=== PATIENT | female | born 1995 | race Caucasian/White ===

== ENCOUNTER 2017-08-18 20:24 | Emergency (ER) | payer SELFPAY ==
[2017-08-18 20:38] VITALS: BP 152/87
[2017-08-18] MEDS ORDERED: Fluconazole 150 MG (NF) 150 MG TAB PO ONE (21:53)
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
[2017-08-18] MEDS ORDERED: Fluconazole 100 MG TAB* TAB PO ONE (22:09)
== END 2017-08-18 22:30 | disposition home or self-care (01) ==
LOC: UCEAST 20:24
DX: Z11.3 Encounter for screening for infections with a predominantly sexual mode of transmission (principal); Z91.410 Personal history of adult physical and sexual abuse; Z11.4 Encounter for screening for human immunodeficiency virus [HIV]
CPT/HCPCS: 36415; 86592; 86703; 86706; 86803; 87340; 87480; 87491; 87510; 87591; 87661; 99202; A9270-GY; G0463

== ENCOUNTER 2017-09-09 14:04 | Emergency (ER) | payer SELFPAY ==
[2017-09-09 14:53] VITALS: BP 124/80
--- NOTE | 2017-09-09 15:01 | UC ---
Skin Complaint HPI - HPI Summary HPI Summary: 21 y/o female present to the urgent care c/o Left big toe infected for the past 2 weeks. She has soaked in hot water and some pus comes out and it gets better for a while. Now is mildly swollen. she also has circular rash in the ventral side of her left forearm for the past month that sometimes itches. Pt states pain is ,mild 2/10 at touch. Pt is UTD w/ all vaccines for her age. Pt denies fever, SOB, chest pain abdominal pain, N/V/D. - History of Current Complaint Chief Complaint: UCLowerExtremity Time Seen by Provider: 09/09/17 14:54 Stated Complaint: SKIN ISSUE ON ARM SWOLLEN TOE Hx Obtained From: Patient Hx Last Menstrual Period: 2 months ago ?: No Onset/Duration: Gradual Onset, Lasting Weeks - 2 weeks, Still Present, Worse Since - 2 days Skin Exposure Onset/Duration: Weeks Ago - 2 weeks Timing: Constant Onset Severity: Mild Current Severity: Moderate Pain Intensity: 1 Pain Scale Used: 0-10 Numeric Location: Foot (Right) - big toe w/ ingrown toenail Character: Swelling, Redness, Painful Aggravating Factor(s): Touch Alleviating Factor(s): Heat, Other - soaking foot on hot water Associated Signs & Symptoms: Positive: Drainage - yellowish, Tenderness. Negative: Fever, Chills - Allergy/Home Medications Allergies/Adverse Reactions: Allergies Allergy/AdvReac Type Severity Reaction Status Date / Time No Known Allergies Allergy Verified 09/09/17 14:55 Review of Systems Constitutional: Negative Skin: Rash - LF forearm w/ a circular rash for the past month taht itches a lot , Other - RT big toe w/ ingrown toenail ENT: Negative Respiratory: Negative Cardiovascular: Negative Gastrointestinal: Negative Genitourinary: Negative Motor: Negative Neurovascular: Negative Musculoskeletal: Negative Neurological: Negative Psychological: Negative Is Patient Immunocompromised?: No All Other Systems Reviewed And Are Negative: Yes PMH/Surg Hx/FS Hx/Imm Hx Previously Healthy: Yes Respiratory History: Asthma - Surgical History Surgical History: Yes Surgery Procedure, Year, and Place: Tonsils - Family History Known Family History: Positive: None - Pt denies FMHX - Social History Occupation: Student Lives: With Family Alcohol Use: None Substance Use Type: None Smoking Status (MU): Former Smoker Physical Exam Triage Information Reviewed: Yes Vital Signs: Initial Vital Signs Temp 97.7 F 09/09/17 14:46 Pulse 85 09/09/17 14:46 Resp 16 09/09/17 14:46 BP 124/80 09/09/17 14:46 Pulse Ox 98 09/09/17 14:46 - Additional Comments Vital Signs Reviewed: Yes General: well developed, well nourished female sitting in the examining table w/ o any apparent distress Eye Exam: Normal Eyes: Positive: Conjunctiva Clear - PERRLA, EOMI, fundi grossly normal ENT: Positive: Normal ENT inspection, Hearing grossly normal, Pharynx normal, TMs normal Neck: Positive: Supple, Nontender, No Lymphadenopathy Respiratory: Positive: Chest non-tender, Lungs clear, Normal breath sounds, No respiratory distress Cardiovascular: Positive: RRR, No Murmur, Pulses Normal, Brisk Capillary Refill Abdomen Description: Positive: Nontender, No Organomegaly, Soft. Negative: CVA Tenderness (R), CVA Tenderness (L) Bowel Sounds: Positive: Present Musculoskeletal: Positive: Strength Intact, ROM Intact, No Edema Neurological: Positive: Alert, Muscle Tone Normal Psychological Exam: Normal Skin: Positive: RT # 1 toe w/ an ingrown toenail on medial side of nail w/ erythema, moderate swelling and yellowish drainage and fluctuant, tender to palpation, , and warm to touch FROM of phalanx, sensation is intact, capillary refill WNL, reflexes WNL. Also medial aspect of the left forearm w/ a oval eruption w/ raised scaling borders, non tender to palpation, signs of excoriation. Course/Dx - Course Course Of Treatment: 21 y/o female present to the urgent care c/o Left big toe infected for the past 2 weeks. She has soaked in hot water and some pus comes out and it gets better for a while. Now is mildly swollen. she also has circular rash in the ventral side of her left forearm for the past month that sometimes itches. Pt states pain is ,mild 2/10 at uh. Pt is UTD w/ all vaccines for her age. Pt denies fever, SOB, chest pain abdominal pain, N/V/D.Hx obtained. Pt w/ RT first toe w/ an ingrown toenail and left forearm w/ tinea corporis on examiantion. Ingrown toenail removal procedure:The procedure was explained and consent obtained. Ulmer protocol performed. Pt declined Digital nerve block procedure.Pt's foot soaked in warm water for 15min. Area anesthesize w/ 2ml of 1% Lidocaine with good anesthesia obtained. Sterile drape and prep were done. medial side of the RT first toenail removed with nail splitting scissors. granulation tissue removed with Silver nitrate stick. topical Bacitracin applied over the area. Wound covered with sterile dressing. The patient tolerated the procedure well. Pt Rx Keflex PO and Bacitracin oint. PT to f/u w/ Brine Process Operator if not improvement for further management. Pt also Rx Lamisil topical cream for Tinea corporis. PT understood and agreed with D/C instructions. Pt Left the clinic ambulating A&OX3 - Differential Diagnoses - Skin Complaint Differential Diagnoses: Cellulitis, MRSA, Tinea, Other - paronychia, onychomycosis - Diagnoses Provider Diagnoses: 1-RT # first Ingrown toenail removal. 2-Tinea corporis Discharge - Discharge Plan Condition: Stable Disposition: HOME Prescriptions: Bacitracin OINTMENT* 1 applic TOPICAL BID #1 tube Cephalexin CAP* [Keflex CAP*] 500 mg PO QID #28 cap Terbinafine [Lamisil At] 12 gm TP DAILY #1 gel..gram. Patient Education Materials: Partial Nail Avulsion for Ingrown Nail (DC) Referrals: [facility] [[facility]] - 3 Days Jaleel Matthew DPM [Doctor of Podiatric Medicine] - If Needed Additional Instructions: 1-Please take full course of Antibiotic to avoid resistance 2- keep wound clean and dry apply topical antibiotic as directed. Keep soaking your foot w/ Epson salt 4-Please F/u with your PCP or Brine Process Operator if not improvement or worsening of symptoms for further evaluation and treatment.
[2017-09-09] MEDS ORDERED: Lidocaine 1% MPF* 2 ML VIAL INJ ONE (15:10)
[2017-09-09] MEDS ORDERED: Silver Nitrate/Potassium Nitr* 1 EA STICK TOPICAL ONE (15:27)
[2017-09-09] MEDS ORDERED: Silver Nitrate/Potassium Nitr* 1 EA STICK ONE (15:29)
== END 2017-09-09 16:16 | disposition home or self-care (01) ==
LOC: UCEAST 14:04
DX: L60.0 Ingrowing nail (principal); B35.4 Tinea corporis; J45.909 Unspecified asthma, uncomplicated; Z87.891 Personal history of nicotine dependence
CPT/HCPCS: 11730; 99212; A9270-GY; G0463